=== PATIENT | male | born 1995 | race Caucasian/White ===

== ENCOUNTER 2022-05-14 03:55 | Emergency (ER) | payer OTHER ==
[~2022-05-14] VITALS: Ht 195.6 cm; Wt 117.1 kg
[2022-05-14] MEDS ORDERED: AMIT25TA17 PO (04:34)
[2022-05-14] MEDS ORDERED: rizatriptan (04:34)
[2022-05-14 04:41] LABS: BASO % 0.2 % (0.0-1.0); HEMATOCRIT 49.8 % (42.0-52.0); HEMOGLOBIN 16.7 g/dl (13.5-17.5); LYMPH # 1.1 10^3/uL (1.5-5.0); LYMPH % 6.5 % (24.0-44.0); MEAN CORPUSCULAR HEMOGLOBIN 30.8 pg (27.0-33.0); MEAN CORPUSCULAR HGB CONC 33.5 g/dl (32.0-36.5); MEAN CORPUSCULAR VOLUME 91.7 fl (80.0-96.0); MONO # 0.5 10^3/uL (0.0-0.8); MONO % 2.6 % (2.0-8.0); NEUTROPHILS # 15.8 10^3/uL (1.5-8.5); NEUTROPHILS % 90.1 % (36.0-66.0); PLATELET COUNT, AUTOMATED 197 10^3/uL (150-450); RED BLOOD COUNT 5.43 10^6/uL (4.30-6.10); WHITE BLOOD COUNT 17.5 10^3/uL (4.0-10.0)
[2022-05-14 05:12] LABS: RSV AMPLIFICATION NEGATIVE (NEGATIVE)
[2022-05-14 05:16] LABS: ALBUMIN 4.6 GM/DL (3.2-5.2); ALT/SGPT 29 U/L (12-78); BILIRUBIN,DIRECT 0.2 MG/DL (0.0-0.2); BILIRUBIN,TOTAL 0.9 MG/DL (0.2-1.0); BLOOD UREA NITROGEN 16 MG/DL (7-18); CALCIUM LEVEL 9.4 MG/DL (8.5-10.1); CARBON DIOXIDE LEVEL 22 MEQ/L (21-32); CHLORIDE LEVEL 110 MEQ/L (98-107); CREATININE FOR GFR 0.98 MG/DL (0.70-1.30); GLOMERULAR FILTRATION RATE > 60.0 (>60); GLUCOSE, FASTING 94 MG/DL (70-100); LIPASE 84 U/L (73-393); POTASSIUM SERUM 4.4 MEQ/L (3.5-5.1); SODIUM LEVEL 140 MEQ/L (136-145); TOTAL PROTEIN 7.6 GM/DL (6.4-8.2)
[2022-05-14] MEDS ORDERED: PANTOPRAZOLE 40MG VIAL IV ONE (07:20)
[2022-05-14] MEDS ORDERED: NS 1,000 ML IV ONE (07:20)
[2022-05-14] MEDS ORDERED: ONDANSETRON 4MG 2ML VIAL IV ONE (07:20)
[2022-05-14] MEDS ORDERED: PRIL20TA2 PO (09:09)
[2022-05-14] MEDS ORDERED: ONDA4TAB6 PO (09:09)
[2022-05-14 09:17] VITALS: BP 159/69
== END 2022-05-14 09:20 | disposition home or self-care (01) ==
LOC: M ED 03:55
DX: K29.00 Acute gastritis without bleeding (principal); D72.829 Elevated white blood cell count, unspecified; G43.909 Migraine, unspecified, not intractable, without status migrainosus; Z79.899 Other long term (current) drug therapy
CPT/HCPCS: 80048; 80076; 81002; 83690; 85025; 87631; 96361; 96374; 96375; 99284; C9113; J2405

== ENCOUNTER 2023-01-13 21:09 | Emergency (ER) | payer OTHER ==
[~2023-01-13] VITALS: Ht 195.6 cm; Wt 120.3 kg
[2023-01-13 21:09] VITALS: BP 132/86; TEMP 99.2; O2SAT 98
[~2023-01-13 21:09] MED LIST: AMIT25TA17 PO; METO50TA7 PO; ONDA4TAB6 PO; PRIL20TA2 PO; rizatriptan
[2023-01-13] MEDS ORDERED: RIZA10TA58 (21:17)
[2023-01-13] MEDS ORDERED: LIDOCAINE 2% MDV 20ML VIAL SC ONE (21:55)
[2023-01-13] MEDS ORDERED: BACITRACIN OINTMENT 30GM TUBE TOP STA (22:23)
== END 2023-01-13 22:48 | disposition home or self-care (01) ==
LOC: M ED 21:09
DX: S61.412A Laceration without foreign body of left hand, initial encounter (principal); W26.0XXA Contact with knife, initial encounter; Y92.009 Unspecified place in unspecified non-institutional (private) residence as the place of occurrence of the external cause; Y93.89 Activity, other specified; Y99.8 Other external cause status; I10 Essential (primary) hypertension; J45.909 Unspecified asthma, uncomplicated

== ENCOUNTER 2023-05-18 20:37 | Emergency (ER) | payer OTHER ==
[~2023-05-18] VITALS: Ht 195.6 cm; Wt 124.0 kg
[2023-05-18 20:37] VITALS: BP 119/71; TEMP 97.5; O2SAT 96
[~2023-05-18 20:37] MED LIST changes: -AMIT25TA17 PO; +AMIT25TA19 PO; +RIZA10TA58
== END 2023-05-18 22:31 | disposition left against medical advice (07) ==
LOC: M ED 20:37
DX: Z53.21 Procedure and treatment not carried out due to patient leaving prior to being seen by health care provider (principal)